=== PATIENT | male | born 1940 | race Caucasian/White ===

== ENCOUNTER 2020-01-22 14:23 | Emergency (ER) | payer MEDICARE, BC ==
[~2020-01-22] VITALS: Ht 180.3 cm; Wt 95.9 kg
[2020-01-22 14:28] VITALS: Ht 180.3 cm; Wt 95.9 kg
[2020-01-22] MEDS ORDERED: LISINOPRIL20 MG PO (14:38)
[2020-01-22] MEDS ORDERED: ASPIRIN EC325 M1 PO (14:38)
[2020-01-22] MEDS ORDERED: DEPAKOTE ER250 MG PO (14:39)
[2020-01-22] MEDS ORDERED: BENZTROPINE ME0.5 MG PO (14:39)
[2020-01-22] MEDS ORDERED: RISPERDAL3 MG PO (14:40)
[2020-01-22] MEDS ORDERED: NAMENDA10 MG PO (14:40)
[2020-01-22] MEDS ORDERED: TIMOPTIC 0.5 % O5 ML EACH EYE (14:40)
[2020-01-22] MEDS ORDERED: MELATONIN 3 MG1 TAB PO (14:40)
[2020-01-22] MEDS ORDERED: ACETAMINOPHEN325 MG PO (14:41)
[2020-01-22] MEDS ORDERED: MIRALAX17 GM PO (14:42)
[2020-01-22] MEDS ORDERED: IMODIUM2 MG PO (14:42)
[2020-01-22] MEDS ORDERED: ROBITUSSIN DM 110 ML PO (14:43)
[2020-01-22] MEDS ORDERED: TUMS X-STR300 MG PO (14:44)
[2020-01-22] MEDS ORDERED: PHENERGAN25 MG RC (14:44)
[2020-01-22 15:24] LABS: BILIRUBIN NEGATIVE (NEGATIVE); GLUCOSE NEGATIVE (NEGATIVE); KETONE NEGATIVE (NEGATIVE); NITRITE NEGATIVE (NEGATIVE); SPECIFIC GRAVITY 1.015 (1.005-1.020); UROBILINOGEN NORMAL (NORMAL)
[2020-01-22 15:26] LABS: BACTERIA FEW /hpf (NEGATIVE); EPITHELIAL CELLS OCC /hpf (0-5); WHITE CELLS - URINE OCC /hpf (NEGATIVE)
[2020-01-22 17:45] VITALS: BP 108/60
== END 2020-01-22 17:45 ==
LOC: EDBD 14:23 → D.ER 14:23
PROVIDERS: Emergency Medicine
DX: I10 Essential (primary) hypertension (principal); F03.90 Unspecified dementia, unspecified severity, without behavioral disturbance, psychotic disturbance, mood disturbance, and anxiety; F39 Unspecified mood [affective] disorder; G47.00 Insomnia, unspecified; M54.9 Dorsalgia, unspecified

== ENCOUNTER 2020-05-23 14:41 | Inpatient (IN) | payer MEDICARE, BC ==
[~2020-05-23] VITALS: Ht 180.3 cm; Wt 97.5 kg
[~2020-05-23 14:41] MED LIST: ACETAMINOPHEN325 MG PO; ASPIRIN EC325 M1 PO; BENZTROPINE ME0.5 MG PO; DEPAKOTE ER250 MG PO; IMODIUM2 MG PO; LISINOPRIL20 MG PO; MELATONIN 3 MG1 TAB PO; MIRALAX17 GM PO; NAMENDA10 MG PO; PHENERGAN25 MG RC; RISPERDAL3 MG PO; ROBITUSSIN DM 110 ML PO; TIMOPTIC 0.5 % O5 ML EACH EYE; TUMS X-STR300 MG PO
[2020-05-23] MEDS ORDERED: NORVASC5 MG PO (14:50)
[2020-05-23 15:39] LABS: BASOPHILS 0 % (0-2); HEMATOCRIT 38.6 % (42.0-54.0); HEMOGLOBIN 12.9 g/dL (13.5-17.5); IMMATURE GRANULOCYTES 0.4 % (0-5); LYMPHOCYTES 11.7 % (15-50); MCH 33.4 pg (26.0-34.0); MCHC 33.4 g/dL (31.0-37.0); MEAN PLATELET VOLUME 9.1 fL (7.4-10.4); MONOCYTES 11.6 % (2-11); NEUTROPHILS 75.3 % (40-80); PLATELET COUNT 164 10x3/uL (130-400); RBC 3.86 10x6/uL (4.20-6.10); RDW 13.2 % (11.5-14.5); WBC 7.9 10x3/uL (4.8-10.8)
[2020-05-23 15:51] LABS: INR 0.93 (0.85-1.17); PROTIME 12.5 SECONDS (11.6-15.0)
[2020-05-23 15:52] LABS: APTT 26.9 SECONDS (22.8-39.4); CALC OSMOLALITY 259 mosm/kg (275-300); CALCIUM 8.5 mg/dL (8.5-10.1); CARBON DIOXIDE 26.4 mmol/L (21.0-32.0); CHLORIDE - SERUM 97 mmol/L (98-107); GLUCOSE 131 mg/dL (74-106); POTASSIUM - SERUM 4.1 mmol/L (3.5-5.1); SODIUM 129 mmol/L (136-145); UREA NITROGEN 10 mg/dL (7-18); eGFR NON AFRICAN AMERICAN 76 mL/min (90-120)
[2020-05-23 15:58] LABS: ALBUMIN 3.1 g/dL (3.4-5.0); ALKALINE PHOSPHATASE 63 U/L (30-120); ALT (SGPT) 12 U/L (10-68); BILIRUBIN - TOTAL 0.33 mg/dL (0.2-1.3); PROTEIN - SERUM 6.2 g/dL (6.4-8.2)
[2020-05-23 16:00] VITALS: BP 149/87
[2020-05-23 17:00] VITALS: BP 175/93
--- NOTE | 2020-05-23 18:28 | NUR ---
PATIENT ARRIVED FROM ER ON BED. TRANSFERED TO BED. SALINE LOCK ON LEFT ARM. BRUISE ON RIGHT HIP/BUTTOCKS AND ON LEFT HIP. SMALL BOWEL MOVEMENT WHEN IN BED. BEDDING CHANGED. ALERT AND ORIENTED. RESPIRATIONS EVEN NON LABORED. NO SIGNS OF DISTRESS NOTED. PATIENT EATING DINNER. NPO AT MIDNIGHT. DENIES FURTHER NEEDS. SIDE RAILS UP X4. CALL LIGHT IN REACH. WILL CONTINUE TO MONITOR FOR SAFTY.
[2020-05-23 18:32] VITALS: BP 134/84
--- NOTE | 2020-05-23 19:04 | NUR ---
PATIENT ALERT AND ORIENTED. EATING DINNER. SITTING UP. RESPIRATIONS EVEN NONLABORED. NO SIGNS OF DISTRESS NOTED. DENIES FURTHER NEEDS. SIDE RAILS UP X3. CALL LIGHT IN REACH. WILL CONTINUE TO MONITOR FOR SAFETY.
[2020-05-23 20:00] VITALS: BP 130/64
--- NOTE | 2020-05-23 21:03 | NUR ---
REC'D SITTING UP IN BED USING URINAL.INSTRUCTED NOTHING TO EAT OR DRINK AFTER MIDNITE GOING TO SURGERY TO GET YOUR HIP FIXED BY DR SHLOMO ROWLEY VOICES UNDERSTANDING.WILL CONTINUE TO MONITOR FOR ANY CHGES IN NEUROVASCULAR STATUS LEFT HIP AND FOLLOW CURRENT PLAN OF CARE.BED ARMED FOR FALL PRECAUTIONS
[2020-05-23 23:02] LABS: MAGNESIUM - SERUM 1.9 mg/dL (1.8-2.4); TROPONIN-I 0.023 ng/mL (0.000-0.060)
[2020-05-24] VITALS: BP 131/72
[2020-05-24 04:00] VITALS: BP 108/72
[2020-05-24 05:03] LABS: BASOPHILS 0 % (0-2); EOSINOPHILS 0.5 % (0-7); HEMATOCRIT 34.1 % (42.0-54.0); HEMOGLOBIN 11.2 g/dL (13.5-17.5); IMMATURE GRANULOCYTES 0.3 % (0-5); MCHC 32.8 g/dL (31.0-37.0); MCV 100.6 fL (80.0-100.0); MEAN PLATELET VOLUME 9.2 fL (7.4-10.4); MONOCYTES 14.5 % (2-11); NEUTROPHILS 72.7 % (40-80); PLATELET COUNT 180 10x3/uL (130-400); RBC 3.39 10x6/uL (4.20-6.10); RDW 13.4 % (11.5-14.5); WBC 9.2 10x3/uL (4.8-10.8)
[2020-05-24 05:28] LABS: PROTIME 13.1 SECONDS (11.6-15.0)
[2020-05-24 05:52] LABS: ALBUMIN 2.8 g/dL (3.4-5.0); ALKALINE PHOSPHATASE 55 U/L (30-120); ALT (SGPT) 10 U/L (10-68); BILIRUBIN - TOTAL 0.57 mg/dL (0.2-1.3); CALC OSMOLALITY 258 mosm/kg (275-300); CALCIUM 8.4 mg/dL (8.5-10.1); CARBON DIOXIDE 27.3 mmol/L (21.0-32.0); CHLORIDE - SERUM 97 mmol/L (98-107); GLUCOSE 115 mg/dL (74-106); POTASSIUM - SERUM 3.8 mmol/L (3.5-5.1); PROTEIN - SERUM 5.7 g/dL (6.4-8.2); SODIUM 129 mmol/L (136-145); UREA NITROGEN 10 mg/dL (7-18); eGFR NON AFRICAN AMERICAN 76 mL/min (90-120)
--- NOTE | 2020-05-24 06:48 | NUR ---
I have reviewed this patient and I concur with the Shift Assessment completed by the Licensed Practical Nurse today this shift.
[2020-05-24 08:40] VITALS: BP 113/71
[2020-05-24 12:35] VITALS: Ht 180.3 cm; Wt 97.5 kg
[2020-05-24 12:41] VITALS: BP 117/71
--- NOTE | 2020-05-24 12:42 | NUR ---
EATING LUNCH. PATIENT IS WITHOUT NEEDS.CALL LIGHT IN REACH
[2020-05-24 15:14] VITALS: BP 112/68
[2020-05-24 20:00] VITALS: BP 96/62
[2020-05-25] VITALS: BP 100/59
--- NOTE | 2020-05-25 02:03 | NUR ---
ASSESSED AT THE BEGINNING OF THE SHIFT. PT IS ALERT AND RESPONSIVE BUT IS A LITTLE CONFUSED. HE IS ABLE TO USE HIS URINAL AND IS ON ROOM AIR. WE HAVE A BED ALARM IN PLACE AND HE RARELY SETS IT OFF. THE DRESSING TO HIS HIP IS CLEAN AND DRY. AT HS MED TIME HE WAS ABLE TO SWALLOW PILLS 2-3 AT A TIME WITHOUT ANY DIFFICULTY. HIS IV SITE IS CLEAR AND NO PROBLEMS NOTED.
[2020-05-25 04:00] VITALS: BP 92/55
[2020-05-25 06:27] LABS: BASOPHILS 0 % (0-2); EOSINOPHILS 0.3 % (0-7); HEMATOCRIT 28.8 % (42.0-54.0); HEMOGLOBIN 9.3 g/dL (13.5-17.5); IMMATURE GRANULOCYTES 0.4 % (0-5); LYMPHOCYTES 9.5 % (15-50); MCH 32.6 pg (26.0-34.0); MCHC 32.3 g/dL (31.0-37.0); MCV 101.1 fL (80.0-100.0); MEAN PLATELET VOLUME 9.4 fL (7.4-10.4); MONOCYTES 17.6 % (2-11); NEUTROPHILS 72.2 % (40-80); RBC 2.85 10x6/uL (4.20-6.10); RDW 13.4 % (11.5-14.5)
[2020-05-25 06:30] LABS: PLATELET COUNT 137 10x3/uL (130-400)
[2020-05-25 06:52] LABS: ALBUMIN 2.4 g/dL (3.4-5.0); BILIRUBIN - TOTAL 0.68 mg/dL (0.2-1.3); CALCIUM 8.3 mg/dL (8.5-10.1); CARBON DIOXIDE 26.6 mmol/L (21.0-32.0); CREATININE - SERUM 1.2 mg/dL (0.6-1.3); MAGNESIUM - SERUM 2.1 mg/dL (1.8-2.4); PROTEIN - SERUM 5.4 g/dL (6.4-8.2)
[2020-05-25 06:54] LABS: ANION GAP 9.8 mmol/L (8-16); POTASSIUM - SERUM 4.4 mmol/L (3.5-5.1)
[2020-05-25 08:49] VITALS: BP 116/61
--- NOTE | 2020-05-25 12:09 | NUR ---
Rehab Prescreening Consult recieved and the chart has been reviewed. He is a good ARU candidate if willing and able to participate in the 3 hrs of therapy every day 5 days a week. He is POD#1 and has a PT eval pending. Rehab will follow. Precious Leon RN Clinical Liaison, Rehab
[2020-05-25 12:47] VITALS: BP 98/62
--- NOTE | 2020-05-25 13:19 | NUR ---
FAMILY IN ROOM. PT SITTING UP WITH BED. NO NEEDS AT THIS TIME.
[2020-05-25 16:00] VITALS: BP 94/50
[2020-05-25 16:50] LABS: BILIRUBIN NEGATIVE (NEGATIVE); GLUCOSE NEGATIVE (NEGATIVE); KETONE NEGATIVE (NEGATIVE); NITRITE NEGATIVE (NEGATIVE); UROBILINOGEN NORMAL (NORMAL)
[2020-05-25 20:00] VITALS: BP 109/57
[2020-05-26] VITALS: BP 89/55
[2020-05-26 04:00] VITALS: BP 95/57
[2020-05-26 06:19] LABS: BASOPHILS 0 % (0-2); EOSINOPHILS 0.7 % (0-7); HEMATOCRIT 23.8 % (42.0-54.0); HEMOGLOBIN 7.9 g/dL (13.5-17.5); IMMATURE GRANULOCYTES 0.3 % (0-5); LYMPHOCYTES 9.9 % (15-50); MCH 33.2 pg (26.0-34.0); MCHC 33.2 g/dL (31.0-37.0); MEAN PLATELET VOLUME 9.8 fL (7.4-10.4); NEUTROPHILS 74.1 % (40-80); PLATELET COUNT 147 10x3/uL (130-400); RBC 2.38 10x6/uL (4.20-6.10); RDW 13.6 % (11.5-14.5); WBC 10.4 10x3/uL (4.8-10.8)
[2020-05-26 06:35] LABS: ALBUMIN 2.2 g/dL (3.4-5.0); ANION GAP 9.7 mmol/L (8-16); BILIRUBIN - TOTAL 0.6 mg/dL (0.2-1.3); CARBON DIOXIDE 26.4 mmol/L (21.0-32.0); CREATININE - SERUM 1.1 mg/dL (0.6-1.3); POTASSIUM - SERUM 4.1 mmol/L (3.5-5.1); PROTEIN - SERUM 4.7 g/dL (6.4-8.2)
--- NOTE | 2020-05-26 09:00 | NUR ---
DRESSING DRY AND INTACT TO LEFT HIP WITH PEDAL PULSES NOTED W/O EDEMA. NO COMPLAINTS OF PAIN NOTED. IV RESTARTED WITH 20G TO LEFT FOREARM
[2020-05-26 09:18] VITALS: BP 119/56
--- NOTE | 2020-05-26 09:25 | NUR ---
STARTED FIRST UNIT PRBC'S WITH NO S/S OF REACTION NOTED.
[2020-05-26 13:21] VITALS: BP 103/61
--- NOTE | 2020-05-26 13:25 | NUR ---
FINISHED 1ST UNIT PRBC'S AND FLUSHING WITH SALINE. NO DISTRESS NOTED OR CHANGE IN CONDITION
--- NOTE | 2020-05-26 14:00 | NUR ---
STARTED 2ND UNIT PRBC'S WITH NO S/S OF REACTION NOTED.
[2020-05-26 16:35] VITALS: BP 115/75
--- NOTE | 2020-05-26 19:05 | NUR ---
PATIENT SLEEPING WHEN ENTERING THE ROOM. PATIENT AROUSES TO VERBAL STIMULI. ORIENTED TO PERSON, PLACE, AND SITUATION. PATIENT STATES PAIN IS MINIMAL AT THIS TIME. ASSESSMENT COMPLETED, SEE CHART. PATIENT LETHARGIC DURING CONVERSATIN BUT AROUSES BACK TO ORIENTATION WHEN NAME CALLED. DENIES FURTHER NEEDS AT THIS TIME. SCD'S ON BILATERALLY. IV PATENT AND INFUSING PER ORDER. DENIES FURTHER NEEDS AT THIS TIME. CALL LIGHT REMAINS CLOSE. CPOC.
[2020-05-26 20:00] VITALS: BP 140/77
--- NOTE | 2020-05-26 21:15 | NUR ---
ADMINISTERED TYLENOL PER ORDER PO FOR PAIN CONTROL. PATIENT TOLERATED WELL.
--- NOTE | 2020-05-26 21:15 | NUR ---
ADMINISTERED HS MEDICATIONS. PATIENT TOLERATES WITH NO ISSUES NOTED. COUGHS AND DEEP BREATHS PER INTERVENTION ORDERS. DENIES FURTHER NEEDS AT THIS TIME. CALL LIGHT REMAINS CLOSE TO PATIENT. CPOC.
[2020-05-27] VITALS: BP 143/83
--- NOTE | 2020-05-27 02:49 | NUR ---
PATIENT VOMITTED. BATH AND BED CHANGE PROVIDED.
[2020-05-27 04:00] VITALS: BP 119/76
[2020-05-27 05:34] LABS: BASOPHILS 0 % (0-2); EOSINOPHILS 0.1 % (0-7); HEMATOCRIT 27.7 % (42.0-54.0); HEMOGLOBIN 9.3 g/dL (13.5-17.5); IMMATURE GRANULOCYTES 0.4 % (0-5); LYMPHOCYTES 4.8 % (15-50); MCH 32.1 pg (26.0-34.0); MCHC 33.6 g/dL (31.0-37.0); MEAN PLATELET VOLUME 9.3 fL (7.4-10.4); MONOCYTES 11.1 % (2-11); NEUTROPHILS 83.6 % (40-80); PLATELET COUNT 142 10x3/uL (130-400); RDW 15.1 % (11.5-14.5); WBC 11.4 10x3/uL (4.8-10.8)
[2020-05-27 05:37] LABS: MCV 95.5 fL (80.0-100.0)
[2020-05-27 05:47] LABS: ALBUMIN 1.9 g/dL (3.4-5.0); ALKALINE PHOSPHATASE 48 U/L (30-120); CALC OSMOLALITY 271 mosm/kg (275-300); CALCIUM 7.8 mg/dL (8.5-10.1); CARBON DIOXIDE 26.3 mmol/L (21.0-32.0); CHLORIDE - SERUM 101 mmol/L (98-107); CREATININE - SERUM 0.9 mg/dL (0.6-1.3); GLUCOSE 146 mg/dL (74-106); MAGNESIUM - SERUM 1.8 mg/dL (1.8-2.4); POTASSIUM - SERUM 4.5 mmol/L (3.5-5.1); SODIUM 131 mmol/L (136-145); UREA NITROGEN 29 mg/dL (7-18); eGFR NON AFRICAN AMERICAN 86 mL/min (90-120)
[2020-05-27 05:48] LABS: ALT (SGPT) 16 U/L (10-68)
[2020-05-27 09:38] VITALS: BP 139/94
[2020-05-27 12:59] VITALS: BP 143/75
[2020-05-27 15:50] VITALS: BP 137/74
--- NOTE | 2020-05-27 19:10 | NUR ---
RESTING WITH EYES CLOSE WHEN ENTERING THE ROOM. PATIENT AROUSES WHEN NAME CALLED. PATIENT VOMITTED BROWN EMESIS WHEN. CLEANED PATIENT AND ASSISTED IN BED CHANGE. ASSESSMENT COMPLETED. LEFT FOREARM IV PATENT. WEARING SCD'S PER ORDER. DENIES FURTHER NEEDS AT THIS TIME. CALL LIGHT CLOSE. CPOC.
[2020-05-27 20:00] VITALS: BP 115/61
[2020-05-28] VITALS: BP 146/79
--- NOTE | 2020-05-28 03:00 | NUR ---
LINES CHANGED PER PROTOCOL. PATIENT DENIES NEEDS AT THIS TIME. CPOC.
[2020-05-28 04:00] VITALS: BP 143/73
[2020-05-28 05:58] LABS: ALBUMIN 1.9 g/dL (3.4-5.0); ALKALINE PHOSPHATASE 50 U/L (30-120); BILIRUBIN - TOTAL 0.67 mg/dL (0.2-1.3); CALC OSMOLALITY 270 mosm/kg (275-300); CALCIUM 8.3 mg/dL (8.5-10.1); CARBON DIOXIDE 26.3 mmol/L (21.0-32.0); CHLORIDE - SERUM 102 mmol/L (98-107); CREATININE - SERUM 0.9 mg/dL (0.6-1.3); GLUCOSE 142 mg/dL (74-106); MAGNESIUM - SERUM 1.9 mg/dL (1.8-2.4); POTASSIUM - SERUM 4.6 mmol/L (3.5-5.1); SODIUM 132 mmol/L (136-145); UREA NITROGEN 24 mg/dL (7-18); eGFR NON AFRICAN AMERICAN 86 mL/min (90-120)
[2020-05-28 05:59] LABS: ALT (SGPT) 21 U/L (10-68)
[2020-05-28 06:49] LABS: BASOPHILS 0.1 % (0-2); EOSINOPHILS 0.3 % (0-7); HEMATOCRIT 25.4 % (42.0-54.0); HEMOGLOBIN 8.5 g/dL (13.5-17.5); IMMATURE GRANULOCYTES 0.3 % (0-5); LYMPHOCYTES 6.7 % (15-50); MCH 32.8 pg (26.0-34.0); MCHC 33.5 g/dL (31.0-37.0); MEAN PLATELET VOLUME 9.2 fL (7.4-10.4); MONOCYTES 9.2 % (2-11); NEUTROPHILS 83.4 % (40-80); PLATELET COUNT 155 10x3/uL (130-400); RBC 2.59 10x6/uL (4.20-6.10); RDW 14.9 % (11.5-14.5); WBC 11.6 10x3/uL (4.8-10.8)
[2020-05-28 06:50] LABS: MCV 98.1 fL (80.0-100.0)
[2020-05-28 08:00] VITALS: BP 142/79
[2020-05-28 11:00] VITALS: BP 108/66
--- NOTE | 2020-05-28 12:24 | NUR ---
Nutrition follow-up: Pt sound asleep at time of RDN visit. Breakfast tray had not been touched; noted pt had Zofran @ 5:00 am. Diet: Regular PO intake ~25% of meals Labs reviewed Wt: 214# +BM RDN will order Ensure with meals to increase kcal/protein intake RDN following.
--- NOTE | 2020-05-28 16:19 | NUR ---
SLEEPING WITHOUT DISTRESS.DOOR OPEN
[2020-05-28 16:40] VITALS: BP 121/69
[2020-05-28 20:00] VITALS: BP 135/75
[2020-05-29] VITALS: BP 122/63
[2020-05-29 04:00] VITALS: BP 152/77
--- NOTE | 2020-05-29 05:00 | NUR ---
I have reviewed this patient and I concur with the Shift Assessment completed by the Licensed Practical Nurse today this shift.
[2020-05-29 06:52] LABS: BASOPHILS 0.1 % (0-2); EOSINOPHILS 2.1 % (0-7); HEMATOCRIT 24.1 % (42.0-54.0); HEMOGLOBIN 7.9 g/dL (13.5-17.5); IMMATURE GRANULOCYTES 0.5 % (0-5); LYMPHOCYTES 12.2 % (15-50); MCH 32.1 pg (26.0-34.0); MCHC 32.8 g/dL (31.0-37.0); MEAN PLATELET VOLUME 9.2 fL (7.4-10.4); MONOCYTES 13.7 % (2-11); NEUTROPHILS 71.4 % (40-80); PLATELET COUNT 172 10x3/uL (130-400); RBC 2.46 10x6/uL (4.20-6.10); RDW 14.3 % (11.5-14.5); WBC 8.7 10x3/uL (4.8-10.8)
[2020-05-29 07:07] LABS: ALBUMIN 1.9 g/dL (3.4-5.0); ALKALINE PHOSPHATASE 60 U/L (30-120); ALT (SGPT) 37 U/L (10-68); BILIRUBIN - TOTAL 0.75 mg/dL (0.2-1.3); CALC OSMOLALITY 263 mosm/kg (275-300); CALCIUM 8.3 mg/dL (8.5-10.1); CARBON DIOXIDE 27.1 mmol/L (21.0-32.0); CHLORIDE - SERUM 99 mmol/L (98-107); CREATININE - SERUM 0.8 mg/dL (0.6-1.3); GLUCOSE 124 mg/dL (74-106); POTASSIUM - SERUM 4.3 mmol/L (3.5-5.1); PROTEIN - SERUM 5.1 g/dL (6.4-8.2); SODIUM 130 mmol/L (136-145); UREA NITROGEN 19 mg/dL (7-18); eGFR NON AFRICAN AMERICAN > 90 mL/min (90-120)
[2020-05-29 09:15] VITALS: BP 160/82
--- NOTE | 2020-05-29 09:32 | OP ---
PATIENT NAME: BIMSARK SIDDIQUI MEDICAL RECORD: [id number] :40 LOCATION:[address] ADMISSION DATE:05/23/20 SURGEON: BEVERLY ROWLEY MD DATE OF OPERATION: 05/24/2020 PREOPERATIVE DIAGNOSIS: Left intertrochanteric hip fracture. POSTOPERATIVE DIAGNOSIS: Left intertrochanteric hip fracture. PROCEDURE: Gamma nail fixation (cephalomedullary fixation of left intertrochanteric hip fracture). SURGEON: Beverly Rowley MD FEED MILL OPERATOR: REJI Curtis INTRAOPERATIVE COMPLICATIONS: None. SUMMARY OF PATHOLOGIC FINDINGS: The patient had an intertrochanteric hip fracture consistent with the preoperative radiographs, it reduced nicely and was amenable to gamma nail fixation. IMPLANTS USED: Gamma 3 fixation from [employer]. OPERATIVE SUMMARY IN DETAIL: After obtaining the appropriate preoperative orthopedic surgery consent as well as anesthetic consultation, evaluation and clearance, the patient was brought to the operating room and placed on table in supine position. After general laryngeal mask airway was administered, the patient was placed in the fracture table. All pressure points were well padded. The right leg was placed in the well leg colorado. The left leg was placed in the traction boot. After the patient was held firmly secured to the table, fluoroscopy was brought in and the hip was reduced under fluoroscopic planes, both AP and lateral. The appropriate timeout was taken and agreed upon by all given the patient's unique identifiers. Left hip was prepped and draped in routine sterile fashion. Under fluoroscopic guidance, incision was made superior to the tip of the greater trochanter. The awl was then used to create an aperture of the greater trochanter. A ball-tipped guidewire was passed. Proximal reaming was followed by insertion of the nail to the appropriate depth. The guidewire was placed in the center-center position on fluoroscopic AP and lateral planes. Appropriate reaming was then followed by placement of the compression screw. The fracture was compressed and then the derotational screw was applied. Distal interlocking screw was applied again, under fluoroscopic plane. AP and lateral views were taken and submitted for radiologist review. Wounds were irrigated and closed in usual fashion. Sterile dressings were applied. The patient was awakened, taken to the recovery room in stable condition. All final needle and sponge counts were correct. TRANSINT:[id number] Voice Confirmation ID: [id number] DOCUMENT ID: [id number] 05/29/2020 Edited date, dmm. OPERATIVE REPORT [id number] BISMARK SIDDIQUI MD, BEVERLY KEENAN at 0932 CC: [id number] DICTATION DATE: 05/25/20 1037 TISSUE TECHNICIAN: 05/25/202019 ADM IN [facility] [address] [id number]
[2020-05-29 19:12] VITALS: BP 107/61
[2020-05-29 19:29] VITALS: BP 141/80
[2020-05-30] VITALS: BP 108/61
--- NOTE | 2020-05-30 01:39 | NUR ---
I have reviewed this patient and I concur with the Shift Assessment completed by the Licensed Practical Nurse today this shift.
[2020-05-30 04:00] VITALS: BP 139/67
[2020-05-30 05:01] LABS: BASOPHILS 0.1 % (0-2); EOSINOPHILS 1.1 % (0-7); HEMATOCRIT 25.3 % (42.0-54.0); HEMOGLOBIN 8.3 g/dL (13.5-17.5); IMMATURE GRANULOCYTES 0.6 % (0-5); LYMPHOCYTES 11.3 % (15-50); MCH 31.9 pg (26.0-34.0); MCHC 32.8 g/dL (31.0-37.0); MCV 97.3 fL (80.0-100.0); MEAN PLATELET VOLUME 9.4 fL (7.4-10.4); MONOCYTES 15.9 % (2-11); PLATELET COUNT 179 10x3/uL (130-400); RDW 14.6 % (11.5-14.5); WBC 8.2 10x3/uL (4.8-10.8)
[2020-05-30 05:28] LABS: ALBUMIN 1.6 g/dL (3.4-5.0); ALKALINE PHOSPHATASE 65 U/L (30-120); ALT (SGPT) 45 U/L (10-68); BILIRUBIN - TOTAL 1.17 mg/dL (0.2-1.3); CALC OSMOLALITY 269 mosm/kg (275-300); CALCIUM 7.9 mg/dL (8.5-10.1); CHLORIDE - SERUM 99 mmol/L (98-107); CREATININE - SERUM 0.8 mg/dL (0.6-1.3); GLUCOSE 122 mg/dL (74-106); PROTEIN - SERUM 4.6 g/dL (6.4-8.2); SODIUM 132 mmol/L (136-145); UREA NITROGEN 23 mg/dL (7-18); eGFR NON AFRICAN AMERICAN > 90 mL/min (90-120)
--- NOTE | 2020-05-30 07:05 | MORECARE ---
CASE MANAGEMENT DISCHARGE SUMMARY PATIENT: BISMARK SIDDIQUI UNIT: [id number] ADM DATE: 05/23/20 AGE: 80 : 40 SEX: M ROOM/BED: D.2202 AUTHOR: MATEO MARTIN PHYSICIAN: REFERRING PHYSICIAN: DELON HAYES MD DATE OF SERVICE: 05/30/20 Discharge Plan Patient Name: BISMARK SIDDIQUI [facility] [facility] 1940 Planned Disposition: Halfway Facility Anticipated Discharge Date: Discharge Date: Expected LOS: Initial Reviewer: [id number] Initial Review Date: 05/23/2020 Generated: 05/30/20 8:04 am Patient Name: BISMARK SIDDIQUI Page [id number] at 0705 All edits/amendments must be made on the electronic document DICTATION DATE: 05/30/20703 DISTRICT GAUGER: RONALD 05/30/2004 RPT#: [id number] DC DATE: STATUS: ADM IN [facility] [address] [place] [address] END OF REPORT
--- NOTE | 2020-05-30 07:11 | MORECARE ---
CASE MANAGEMENT DISCHARGE SUMMARY PATIENT: BISMARK SIDDIQUI UNIT: [id number] ADM DATE: 05/23/20 AGE: 80 : 40 SEX: M ROOM/BED: D.2202 AUTHOR: MATEO MARTIN PHYSICIAN: REFERRING PHYSICIAN: DELON HAYES MD DATE OF SERVICE: 05/30/20 Discharge Plan Patient Name: BISMARK SIDDIQUI Facility: [facility]:[place] : 1940 Planned Disposition: Senior Care Facility Anticipated Discharge Date: Discharge Date: Expected LOS: Initial Reviewer: [email or web address] Initial Review Date: 05/23/2020 Generated: 05/30/20 8:11 am DCPIA - Discharge Planning Initial Assessment Updated by [id number]: Salena Wong on 05/30/20 7:09 am * Is the patient Alert and Oriented? Yes * How many steps to enter\exit or inside your home? * [facility]CP [facility] * Pharmacy [facility] * Preadmission Environment Memory Care * Facility Name [facility] * ADLs Partial Dependent * Partial ADLs (Assistance needed) Medication Management Toileting * Equipment Walker * List name and contact numbers for known caregivers / representatives who currently or will assist patient after discharge: TERESO ( GUARDIAN) [phone] * Verbal permission to speak to the caregivers and representatives has been obtained from the patient. Yes * Additional services required to return to the preadmission environment? Yes * Can the patient safely return to the preadmission environment? No * Has this patient been hospitalized within the prior 30 days at any hospital? No External Providers External Provider: [facility] Next Contact Date: Service Request Date: Service Type: Resolution: Reviewer: Comments: Last DP export: 05/30/20 6:05 a Patient Name: BISMARK SIDDIQUI Page [phone] at 0711 All edits/amendments must be made on the electronic document DICTATION DATE: 05/30/20710 COMPENSATION VICE PRESIDENT: RONALD 05/30/20710 RPT#: [id number] DC DATE: STATUS: ADM IN [facility] [address] [facility] [place] [address] END OF REPORT
--- NOTE | 2020-05-30 07:18 | MORECARE ---
CASE MANAGEMENT DISCHARGE SUMMARY PATIENT: BISMARK SIDDIQUI UNIT: [id number] ADM DATE: 05/23/20 AGE: 80 : 40 SEX: M ROOM/BED: D.2202 AUTHOR: MATEO MARTIN PHYSICIAN: REFERRING PHYSICIAN: DELON HAYES MD DATE OF SERVICE: 05/30/20 Discharge Plan Patient Name: BISMARK SIDDIQUI Facility: [facility]:[place] : 1940 Planned Disposition: Half-Way Facility Anticipated Discharge Date: Discharge Date: Expected LOS: Initial Reviewer: [id number] Initial Review Date: 05/23/2020 Generated: 05/30/20 8:17 am Comments DCP- Discharge Planning Updated by [id number]: Salena Wong on 05/30/20 6:[address] Patient Name: BISMARK SIDDIQUI Admission Status: ER Accout number: [id number] Admission Date: 05-23-2020 : 1940 Admission Diagnosis:DISPLACED INTERTROCHANTERIC FRACTURE OF LEFT FEMUR, INI Attending: DELON JONES Current LOS: 7 Anticipated DC Date: Planned Disposition: Half-Way Facility Primary Insurance: MEDICARE A & B Discharge Planning Comments: LATE ENTRY 05/29/20 @ 1200 MET WITH TERESO (PATIENT'S GUARDIAN) [phone]. I SPOKE WITH HER AT LENGTH ABOUT PLOF AND DC PLAN. THE PATIENT IS A RESIDENT AT THE [facility] IN THEIR MEMORY CARE UNIT. HE MOVED THERE IN OCT 2019. TERESO BECAME HIS GUARDIAN IN OCT. AT THE [facility] THE PATIENT ONLY USED A WALKER. HE WAS AMBULATORY & COULD FEED HIMSELF. PER TERESO HE COULD DO EVERYTHING, HE JUST NEEDED TO BE IN A LOCKED UNIT BECAUSE HE WOULD LEAVE. TERESO'S GOAL IS TO GET HIM BACK TO THE [facility]. HE WILL NEED REHAB PRIOR TO GOING BACK THERE. [facility] SIGNED FOR ANY SKILLED. TERESO DID NOTE THAT YIMI MALIN AT [facility] [facility] IN [place] IS THE PERSON WHO DEALS WITH HIS MONEY. YIMI'S NUMBER IS [phone] OR [phone]. HAS SENT A REFERRAL TO [facility] AND WILL ALSO SEND IT TO [facility] IN [place] ( CLOSER TO TERESO) CM TO FOLLOW AND ASSIST WITH DC PLANNING Child Development Teacher: Salena Wong DCPIA - Discharge Planning Initial Assessment Updated by [email or web address]: Salena Wong on 05/30/20 7:09 am * Is the patient Alert and Oriented? Yes * How many steps to enter\exit or inside your home? * PCP [facility] AT THE [facility] IN [place] * Pharmacy [facility] [place] * Preadmission Environment Memory Care * Facility Name [facility] * ADLs Partial Dependent * Partial ADLs (Assistance needed) Medication Management Toileting * Equipment Walker * List name and contact numbers for known caregivers / representatives who currently or will assist patient after discharge: TERESO ( GUARDIAN) [phone] * Verbal permission to speak to the caregivers and representatives has been obtained from the patient. Yes * Additional services required to return to the preadmission environment? Yes * Can the patient safely return to the preadmission environment? No * Has this patient been hospitalized within the prior 30 days at any hospital? No Coverage Notice Reviewer: [id number] - Salena Wong Notice Issued Date-Time: 05/29/2020 12:00 Notice Type: Patient Choice Letter Notice Delivered To: Other Relationship to Patient: Legal Guardian Criminal Profiler Name: TERESO Delivery Method: HAND - Hand Delivered Verena Days: Prior Verbal Notification: Recipient Understood Notice: Yes Recipient Signature: Yes Med Rec Note Co-signed by Attending: Coverage Notice Comment: Last DP export: 05/30/20 6:11 a Patient Name: BISMARK SIDDIQUI Page [phone] at 0718 All edits/amendments must be made on the electronic document DICTATION DATE: 05/30/20716 DRIVER MERCHANDISER: RONALD 05/30/20716 RPT#: [id number] DC DATE: STATUS: ADM IN [facility] [address] [place] [address] END OF REPORT
[2020-05-30 08:45] VITALS: BP 106/69
[2020-05-30] MEDS ORDERED: ELIQUIS2.5 MG PO (09:18)
[2020-05-30] MEDS ORDERED: MUCINEX600 MG PO (09:19)
[2020-05-30 13:06] VITALS: BP 104/63
--- NOTE | 2020-05-30 13:45 | MORECARE ---
CASE MANAGEMENT DISCHARGE SUMMARY PATIENT: BISMARK SIDDIQUI UNIT: [id number] ADM DATE: 05/23/20 AGE: 80 : 40 SEX: M ROOM/BED: D.2202 AUTHOR: MATEO MARTIN PHYSICIAN: REFERRING PHYSICIAN: DELON HAYES MD DATE OF SERVICE: 05/30/20 Discharge Plan Patient Name: BISMARK SIDDIQUI Facility: [facility]:[place] : 1940 Planned Disposition: Shelter Facility Anticipated Discharge Date: Discharge Date: Expected LOS: Initial Reviewer: [id number] Initial Review Date: 05/23/2020 Generated: 05/30/20 2:45 pm Comments DCP- Discharge Planning Updated by [id number]: Salena Wong on 05/30/20 12:[address] [facility] CALLED AND STATED THAT THEY WILL ACCEPT PATIENT TOMORROW MORNING TO A SKILLED BED DCP- Discharge Planning Updated by [id number]: Salena Wong on 05/30/20 6:[address] Patient Name: BISMARK SIDDIQUI Admission Status: ER Accout number: [id number] Admission Date: 05-23-2020 : 1940 Admission Diagnosis:DISPLACED INTERTROCHANTERIC FRACTURE OF LEFT FEMUR, INI Attending: DELON JONES Current LOS: 7 Anticipated DC Date: Planned Disposition: Shelter Facility Primary Insurance: MEDICARE A & B Discharge Planning Comments: LATE ENTRY 05/29/20 @ 1200 CM MET WITH TERESO (PATIENT'S GUARDIAN) [phone]. I SPOKE WITH HER AT LENGTH ABOUT PLOF AND DC PLAN. THE PATIENT IS A RESIDENT AT [facility] IN THEIR MEMORY CARE UNIT. HE MOVED THERE IN OCT 2019. TERESO BECAME HIS GUARDIAN IN OCT. AT [facility] THE PATIENT ONLY USED A WALKER. HE WAS AMBULATORY & COULD FEED HIMSELF. PER TERESO HE COULD DO EVERYTHING, HE JUST NEEDED TO BE IN A LOCKED UNIT BECAUSE HE WOULD LEAVE. TERESO'S GOAL IS TO GET HIM BACK TO THE [facility]. HE WILL NEED REHAB PRIOR TO GOING BACK THERE. [facility] SIGNED FOR ANY SKILLED. TERESO DID NOTE THAT YIMI MALIN AT [employer] IN [place] IS THE PERSON WHO DEALS WITH HIS MONEY. YIMI'S NUMBER IS [phone] OR [phone]. HAS SENT A REFERRAL TO [facility] AND WILL ALSO SEND IT TO [facility] IN [place] ( CLOSER TO TERESO) [place] TO FOLLOW AND ASSIST WITH DC PLANNING Manager Product: Salena Wong DCPIA - Discharge Planning Initial Assessment Updated by [email or web address]: Salena Wong on 05/30/20 7:09 am * Is the patient Alert and Oriented? Yes * How many steps to enter\exit or inside your home? * PCP [facility] AT THE [facility] [place] * Pharmacy [facility] [place] * Preadmission Environment Memory Care * Facility Name [facility] * ADLs Partial Dependent * Partial ADLs (Assistance needed) Medication Management Toileting * Equipment Walker * List name and contact numbers for known caregivers / representatives who currently or will assist patient after discharge: TERESO ( GUARDIAN) [phone] * Verbal permission to speak to the caregivers and representatives has been obtained from the patient. Yes * Additional services required to return to the preadmission environment? Yes * Can the patient safely return to the preadmission environment? No * Has this patient been hospitalized within the prior 30 days at any hospital? No Coverage Notice Reviewer: [id number] - Salena Wong Notice Issued Date-Time: 05/29/2020 12:00 Notice Type: Patient Choice Letter Notice Delivered To: Other Relationship to Patient: Legal Guardian Hip Hop Performers Name: TERESO Delivery Method: HAND - Hand Delivered Verena Days: Prior Verbal Notification: Recipient Understood Notice: Yes Recipient Signature: Yes Med Rec Note Co-signed by Attending: Coverage Notice Comment: Last DP export: 05/30/20 6:18 a Patient Name: BISMARK SIDDIQUI Page [phone] at 1345 All edits/amendments must be made on the electronic document DICTATION DATE: 05/30/20 1345 COMPUTER OPERATIONS SPECIALIST: RONALD 05/30/20 1345 RPT#: [id number] DC DATE: STATUS: ADM IN [facility] [address] [place] [address] END OF REPORT
[2020-05-30 16:33] VITALS: BP 145/78
[2020-05-30 18:51] LABS: BILIRUBIN NEGATIVE (NEGATIVE); GLUCOSE NEGATIVE (NEGATIVE); KETONE SMALL mg/dL (NEGATIVE); NITRITE NEGATIVE (NEGATIVE); UROBILINOGEN NORMAL (NORMAL)
[2020-05-30 20:00] VITALS: BP 129/75
[2020-05-31 04:00] VITALS: BP 123/67
[2020-05-31 06:41] LABS: BASOPHILS 0 % (0-2); HEMATOCRIT 25.8 % (42.0-54.0); HEMOGLOBIN 8.4 g/dL (13.5-17.5); IMMATURE GRANULOCYTES 0.6 % (0-5); LYMPHOCYTES 7.2 % (15-50); MCH 32.1 pg (26.0-34.0); MCHC 32.6 g/dL (31.0-37.0); MCV 98.5 fL (80.0-100.0); MEAN PLATELET VOLUME 8.9 fL (7.4-10.4); MONOCYTES 16.1 % (2-11); NEUTROPHILS 73.1 % (40-80); PLATELET COUNT 188 10x3/uL (130-400); RBC 2.62 10x6/uL (4.20-6.10); RDW 14.5 % (11.5-14.5); WBC 8.2 10x3/uL (4.8-10.8)
--- NOTE | 2020-05-31 06:54 | NUR ---
I have reviewed this patient and I concur with the Shift Assessment completed by the Licensed Practical Nurse today this shift.
[2020-05-31 06:58] LABS: ALBUMIN 1.7 g/dL (3.4-5.0); ALKALINE PHOSPHATASE 74 U/L (30-120); ALT (SGPT) 43 U/L (10-68); BILIRUBIN - TOTAL 0.89 mg/dL (0.2-1.3); CALC OSMOLALITY 267 mosm/kg (275-300); CALCIUM 8.4 mg/dL (8.5-10.1); CARBON DIOXIDE 26.9 mmol/L (21.0-32.0); CHLORIDE - SERUM 101 mmol/L (98-107); CREATININE - SERUM 0.7 mg/dL (0.6-1.3); GLUCOSE 117 mg/dL (74-106); PROTEIN - SERUM 4.7 g/dL (6.4-8.2); SODIUM 132 mmol/L (136-145); UREA NITROGEN 18 mg/dL (7-18); eGFR NON AFRICAN AMERICAN > 90 mL/min (90-120)
--- NOTE | 2020-05-31 09:07 | MORECARE ---
CASE MANAGEMENT DISCHARGE SUMMARY PATIENT: BISMARK SIDDIQUI UNIT: [id number] ADM DATE: 05/23/20 AGE: 80 : 40 SEX: M ROOM/BED: D.2202 AUTHOR: MATEO MARTIN PHYSICIAN: REFERRING PHYSICIAN: DELON HAYES MD DATE OF SERVICE: 05/31/20 Discharge Plan Patient Name: BISMARK SIDDIQUI Facility: [facility]:[place] : 1940 Planned Disposition: Residential Facility Anticipated Discharge Date: Discharge Date: Expected LOS: Initial Reviewer: [email or web address] Initial Review Date: 05/23/2020 Generated: 05/31/20 10:06 am Comments DCP- Discharge Planning Updated by [id number]: Salena Wong on 05/31/20 7:[address] PATIENT WILL BE DISCHARGING TO [facility] TO A SKILLED BED. I HAVE SPOKEN WITH THE PATIENTS GUARDIAN TERESO FABIAN AND WENT OVER IMM. SHE WILL BE GOING OVER TO [facility] TO BRING HIS STUFF HE WILL NEED TO GO VIA EMS CM TO FOLLOW AND ASSIST DCP- Discharge Planning Updated by [email or web address]: Salena Wong on 05/30/20 12:[address] [facility] WITH [facility] CALLED AND STATED THAT THEY WILL ACCEPT PATIENT TOMORROW MORNING TO A SKILLED BED DCP- Discharge Planning Updated by [id number]: Salena Wong on 05/30/20 6:[address] Patient Name: BISMARK SIDDIQUI Admission Status: ER Accout number: [id number] Admission Date: 05-23-2020 : 1940 Admission Diagnosis:DISPLACED INTERTROCHANTERIC FRACTURE OF LEFT FEMUR, INI Attending: DELON JONES Current LOS: 7 Anticipated DC Date: Planned Disposition: Residential Facility Primary Insurance: MEDICARE A & B Discharge Planning Comments: LATE ENTRY 05/29/20 @ 1200 CM MET WITH TERESO (PATIENT'S GUARDIAN) [phone]. I SPOKE WITH HER AT LENGTH ABOUT PLOF AND DC PLAN. THE PATIENT IS A RESIDENT AT THE [facility] IN THEIR MEMORY CARE UNIT. HE MOVED THERE IN OCT 2019. TERESO BECAME HIS GUARDIAN IN OCT. AT THE [facility] THE PATIENT ONLY USED A WALKER. HE WAS AMBULATORY & COULD FEED HIMSELF. PER TERESO HE COULD DO EVERYTHING, HE JUST NEEDED TO BE IN A LOCKED UNIT BECAUSE HE WOULD LEAVE. TERESO'S GOAL IS TO GET HIM BACK TO THE [facility]. HE WILL NEED REHAB PRIOR TO GOING BACK THERE. [facility] SIGNED FOR ANY SKILLED. TERESO DID NOTE THAT YIMI MALIN AT [facility] IN [place] IS THE PERSON WHO DEALS WITH HIS MONEY. YIMI'S NUMBER IS [phone] OR [phone]. CM HAS SENT A REFERRAL TO [facility] AND WILL ALSO SEND IT TO [facility] IN [place] ( CLOSER TO TERESO) CM TO FOLLOW AND ASSIST WITH DC PLANNING Salesperson Furs: Salena Wong DCPIA - Discharge Planning Initial Assessment Updated by [id number]: Salena Wong on 05/30/20 7:09 am * Is the patient Alert and Oriented? Yes * How many steps to enter\exit or inside your home? * PCP [facility]ТР[facility]Й AT THE [facility] IN [place] * Pharmacy [facility] IN [place] * Preadmission Environment Memory Care * Facility Name [facility] * ADLs Partial Dependent * Partial ADLs (Assistance needed) Medication Management Toileting * Equipment Walker * List name and contact numbers for known caregivers / representatives who currently or will assist patient after discharge: TERESO ( GUARDIAN) [phone] * Verbal permission to speak to the caregivers and representatives has been obtained from the patient. Yes * Additional services required to return to the preadmission environment? Yes * Can the patient safely return to the preadmission environment? No * Has this patient been hospitalized within the prior 30 days at any hospital? No Coverage Notice Reviewer: [id number] Ha Wong Notice Issued Date-Time: 05/29/2020 12:00 Notice Type: Patient Choice Letter Notice Delivered To: Other Relationship to Patient: Legal Guardian Access Tech Name: TERESO Delivery Method: HAND - Hand Delivered Verena Days: Prior Verbal Notification: Recipient Understood Notice: Yes Recipient Signature: Yes Med Rec Note Co-signed by Attending: Coverage Notice Comment: Reviewer: [id number] Ha Wong Notice Issued Date-Time: 05/31/2020 8:30 Notice Type: IM Discharge Notice Notice Delivered To: Other Relationship to Patient: Legal Guardian Access Tech Name: TERESO CAREN Delivery Method: CERT - Certified Mail Verena Days: Prior Verbal Notification: Yes Recipient Understood Notice: Yes Recipient Signature: Med Rec Note Co-signed by Attending: Coverage Notice Comment: VIA TELEPHONE WITH GUARDIAN TERESO FABIAN WILL SEND VIA MAIL TO HER Last DP export: 05/30/20 12:45 p Patient Name: BISMARK SIDDIQUI Page [phone] at 0907 All edits/amendments must be made on the electronic document DICTATION DATE: 05/31/20906 VIDEO SYSTEMS ENGINEER: RONALD 05/31/20906 RPT#: [id number] DC DATE: STATUS: ADM IN [facility] [address] [place] [address] END OF REPORT
[2020-05-31] MEDS ORDERED: NICODERM CQ1 EAC1 TOPICAL (09:51)
[2020-05-31 10:59] VITALS: BP 147/50
--- NOTE | 2020-05-31 11:09 | NUR ---
HE IS CONFUSED, WILL NOT FEED HIMSELF. TOOK HIS MEDICATIONS CRUSHED WITH APPLESAUCE. THIS LEFT HIP IS BRUISES AND HARD AROUND HIS LEFT HIP AND THIGH AREA. HE TESTICLES ARE BRUSIED AND HIS BOTTOM IS RED, CREAM APPLIED. THE CALL LIGHT IS WTIHIN REACH.
--- NOTE | 2020-05-31 11:20 | NUR ---
REPORT CALL TO TEODORO HAGER AT [facility].
--- NOTE | 2020-05-31 12:31 | MORECARE ---
CASE MANAGEMENT DISCHARGE SUMMARY PATIENT: BISMARK SIDDIQUI UNIT: [id number] ADM DATE: 05/23/20 AGE: 80 : 40 SEX: M ROOM/BED: D.2202 AUTHOR: MATEO MARTIN PHYSICIAN: REFERRING PHYSICIAN: DELON HAYES MD DATE OF SERVICE: 05/31/20 Discharge Plan Patient Name: BISMARK SIDDIQUI Facility: [facility]:[place] : 1940 Planned Disposition: Residential Facility Anticipated Discharge Date: Discharge Date: Expected LOS: Initial Reviewer: [id number] Initial Review Date: 05/23/2020 Generated: 05/31/20 1:30 pm Comments DCP- Discharge Planning Updated by [email or web address]: Salena Wong on 05/31/20 11:[address] PT DISCHARGE HAS BEEN PLACED ON HOLD DUE TO AMS AND BIG DECLINE, WILL WAIT FOR RESULTS DCP- Discharge Planning Updated by [email or web address]: Salena Wong on 05/31/20 7:[address] PATIENT WILL BE DISCHARGING TO [facility] TO A SKILLED BED. I HAVE SPOKEN WITH THE PATIENTS GUARDIAN TERESO FABIAN AND WENT OVER IMM. SHE WILL BE GOING OVER TO [facility] TO BRING HIS STUFF HE WILL NEED TO GO VIA EMS CM TO FOLLOW AND ASSIST DCP- Discharge Planning Updated by [id number]: Salena Wong on 05/30/20 12:[address] [facility] CALLED AND STATED THAT THEY WILL ACCEPT PATIENT TOMORROW MORNING TO A SKILLED BED DCP- Discharge Planning Updated by [email or web address]: Salena Wong on 05/30/20 6:[address] Patient Name: BISMARK SIDDIQUI Admission Status: ER Accout number: [id number] Admission Date: 05-23-2020 : 1940 Admission Diagnosis:DISPLACED INTERTROCHANTERIC FRACTURE OF LEFT FEMUR, INI Attending: DELON JONES Current LOS: 7 Anticipated DC Date: Planned Disposition: Residential Facility Primary Insurance: MEDICARE A & B Discharge Planning Comments: LATE ENTRY 05/29/20 @ 1200 CM MET WITH TERESO (PATIENT'S GUARDIAN) [phone]. I SPOKE WITH HER AT LENGTH ABOUT PLOF AND DC PLAN. THE PATIENT IS A RESIDENT AT THE [facility] IN THEIR [facility]. HE MOVED THERE IN OCT 2019. TERESO BECAME HIS GUARDIAN IN OCT. AT THE [facility] THE PATIENT ONLY USED A WALKER. HE WAS AMBULATORY & COULD FEED HIMSELF. PER TERESO HE COULD DO EVERYTHING, HE JUST NEEDED TO BE IN A LOCKED UNIT BECAUSE HE WOULD LEAVE. TERESO'S GOAL IS TO GET HIM BACK TO THE [facility]. HE WILL NEED REHAB PRIOR TO GOING BACK THERE. MAREK SIGNED FOR ANY SKILLED. TERESO DID NOTE THAT YIMI MALIN AT [employer] IN [place] IS THE PERSON WHO DEALS WITH HIS MONEY. YIMI'S NUMBER IS [phone] OR [phone]. HAS SENT A REFERRAL TO [facility] AND WILL ALSO SEND IT TO [facility] IN [place] ( CLOSER TO TERESO) [place] TO FOLLOW AND ASSIST WITH DC PLANNING House Cleaner: Salena Wong DCPIA - Discharge Planning Initial Assessment Updated by [email or web address]: Salena Wong on 05/30/20 7:09 am * Is the patient Alert and Oriented? Yes * How many steps to enter\exit or inside your home? * PCP [facility] AT THE [facility] [place] IN [place] * Pharmacy [facility] * Preadmission Environment Memory Care * Facility Name [facility] * ADLs Partial Dependent * Partial ADLs (Assistance needed) Medication Management Toileting * Equipment Walker * List name and contact numbers for known caregivers / representatives who currently or will assist patient after discharge: TERESO ( GUARDIAN) [phone] * Verbal permission to speak to the caregivers and representatives has been obtained from the patient. Yes * Additional services required to return to the preadmission environment? Yes * Can the patient safely return to the preadmission environment? No * Has this patient been hospitalized within the prior 30 days at any hospital? No Coverage Notice Reviewer: [id number] Ha Wong Notice Issued Date-Time: 05/29/2020 12:00 Notice Type: Patient Choice Letter Notice Delivered To: Other Relationship to Patient: Legal Guardian Linen Sorter Name: TERESO Delivery Method: HAND - Hand Delivered Verena Days: Prior Verbal Notification: Recipient Understood Notice: Yes Recipient Signature: Yes Med Rec Note Co-signed by Attending: Coverage Notice Comment: Reviewer: [id number] - Salena Marvin Notice Issued Date-Time: 05/31/2020 8:30 Notice Type: IM Discharge Notice Notice Delivered To: Other Relationship to Patient: Legal Guardian Linen Sorter Name: TERESO FABIAN Delivery Method: CERT - Certified Mail Verena Days: Prior Verbal Notification: Yes Recipient Understood Notice: Yes Recipient Signature: Med Rec Note Co-signed by Attending: Coverage Notice Comment: VIA TELEPHONE WITH GUARDIAN TERESO FABIAN WILL SEND VIA MAIL TO HER Last DP export: 05/31/20 8:07 a Patient Name: BISMARK SIDDIQUI Page [phone] at 1230 All edits/amendments must be made on the electronic document DICTATION DATE: 05/31/20 1230 PRINTING PRESS OPERATOR: RONALD 05/31/20 1230 RPT#: [id number] DC DATE: STATUS: ADM IN [facility] [address] [place] [address] END OF REPORT
--- NOTE | 2020-05-31 12:55 | NUR ---
POST VOID [phone] CC.
[2020-05-31 13:16] VITALS: BP 129/82
--- NOTE | 2020-05-31 13:54 | NUR ---
PLACED A 14 SUDANESE COUDE CATH WITHOUT ANY PROBLEM. IMMIDATE RETURN OF URINE. THE CALL LIGHT IS WITHIN REACH.
--- NOTE | 2020-05-31 14:15 | NUR ---
UPDATED LAST HAGER ABOUT THE WOLF AND CT BEING DONE.
--- NOTE | 2020-05-31 14:25 | NUR ---
SHE IS CONFUSED AND UNABLE TO SIGN HIS PAPERWORK. WE SPOKE TERESO, THE POA ABOUT THE DISCHARGE. H
--- NOTE | 2020-05-31 15:00 | NUR ---
THE EMS IS HERE TO GET HIM, HE IS GOING TO [facility].
[2020-06-01] MEDS ORDERED: HYDROCODON-ACE1 EAC7 PO (16:44)
--- NOTE | 2020-06-01 16:59 | MORECARE ---
CASE MANAGEMENT DISCHARGE SUMMARY PATIENT: BISMARK SIDDIQUI UNIT: [id number] ADM DATE: 05/23/20 AGE: 80 : 40 SEX: M ROOM/BED: D.2202 AUTHOR: MATEO MARTIN PHYSICIAN: REFERRING PHYSICIAN: DELON HAYES MD DATE OF SERVICE: 06/01/20 Discharge Plan Patient Name: BISMARK SIDDIQUI Facility: [facility]:[place] : 1940 Planned Disposition: Custodial Facility Anticipated Discharge Date: Discharge Date: 05/31/2020 Expected LOS: Initial Reviewer: [email or web address] Initial Review Date: 05/23/2020 Generated: 06/01/20 5:58 pm Comments DCP- Discharge Planning Updated by [id number]: Salena Wong on 05/31/20 11:[address] PT DISCHARGE HAS BEEN PLACED ON HOLD DUE TO AMS AND BIG DECLINE, WILL WAIT FOR RESULTS DCP- Discharge Planning Updated by [email or web address]: Salena Wong on 05/31/20 7:[address] PATIENT WILL BE DISCHARGING TO [facility] TO A SKILLED BED. I HAVE SPOKEN WITH THE PATIENTS GUARDIAN TERESO FABIAN AND WENT OVER IMM. SHE WILL BE GOING OVER TO [facility] TO BRING HIS STUFF HE WILL NEED TO GO VIA EMS CM TO FOLLOW AND ASSIST DCP- Discharge Planning Updated by [id number]: Salena Wong on 05/30/20 12:[address] [facility] CALLED AND STATED THAT THEY WILL ACCEPT PATIENT TOMORROW MORNING TO A SKILLED BED DCP- Discharge Planning Updated by [id number]: Salena Wong on 05/30/20 6:[address] Patient Name: BISMARK SIDDIQUI Admission Status: ER Accout number: [id number] Admission Date: 05-23-2020 : 1940 Admission Diagnosis:DISPLACED INTERTROCHANTERIC FRACTURE OF LEFT FEMUR, INI Attending: DELON JONES Current LOS: 7 Anticipated DC Date: Planned Disposition: Custodial Facility Primary Insurance: MEDICARE A & B Discharge Planning Comments: LATE ENTRY 05/29/20 @ 1200 CM MET WITH TERESO (PATIENT'S GUARDIAN) [phone]. I SPOKE WITH HER AT LENGTH ABOUT PLOF AND DC PLAN. THE PATIENT IS A RESIDENT AT THE [facility] IN THEIR [facility]. HE MOVED THERE IN OCT 2019. TERESO BECAME HIS GUARDIAN IN OCT. AT THE [facility] THE PATIENT ONLY USED A WALKER. HE WAS AMBULATORY & COULD FEED HIMSELF. PER TERESO HE COULD DO EVERYTHING, HE JUST NEEDED TO BE IN A LOCKED UNIT BECAUSE HE WOULD LEAVE. TERESO'S GOAL IS TO GET HIM BACK TO THE [facility]. HE WILL NEED REHAB PRIOR TO GOING BACK THERE. MAREK SIGNED FOR ANY SKILLED. TERESO DID NOTE THAT YIMI MALIN AT [employer] IN [place] IS THE PERSON WHO DEALS WITH HIS MONEY. YIMI'S NUMBER IS [phone] OR [phone]. HAS SENT A REFERRAL TO [facility] AND WILL ALSO SEND IT TO [facility] IN [place] ( CLOSER TO TERESO) [place] TO FOLLOW AND ASSIST WITH DC PLANNING Kilnman: Salena Wong DCPIA - Discharge Planning Initial Assessment Updated by [id number]: Salena Wong on 05/30/20 7:09 am * Is the patient Alert and Oriented? Yes * How many steps to enter\exit or inside your home? * PCP [facility] AT THE [facility] [place] IN [place] * Pharmacy [facility] * Preadmission Environment Memory Care * Facility Name [facility] * ADLs Partial Dependent * Partial ADLs (Assistance needed) Medication Management Toileting * Equipment Walker * List name and contact numbers for known caregivers / representatives who currently or will assist patient after discharge: TERESO ( GUARDIAN) [phone] * Verbal permission to speak to the caregivers and representatives has been obtained from the patient. Yes * Additional services required to return to the preadmission environment? Yes * Can the patient safely return to the preadmission environment? No * Has this patient been hospitalized within the prior 30 days at any hospital? No Coverage Notice Reviewer: [id number] Ha Wong Notice Issued Date-Time: 05/29/2020 12:00 Notice Type: Patient Choice Letter Notice Delivered To: Other Relationship to Patient: Legal Guardian System Sales Consultant Name: TERESO Delivery Method: HAND - Hand Delivered Verena Days: Prior Verbal Notification: Recipient Understood Notice: Yes Recipient Signature: Yes Med Rec Note Co-signed by Attending: Coverage Notice Comment: Reviewer: [id number] Wong Notice Issued Date-Time: 05/31/2020 8:30 Notice Type: IM Discharge Notice Notice Delivered To: Other Relationship to Patient: Legal Guardian System Sales Consultant Name: TERESO FABIAN Delivery Method: CERT - Certified Mail Verena Days: Prior Verbal Notification: Yes Recipient Understood Notice: Yes Recipient Signature: Med Rec Note Co-signed by Attending: Coverage Notice Comment: VIA TELEPHONE WITH GUARDIAN TERESO FABIAN WILL SEND VIA MAIL TO HER Last DP export: 05/31/20 11:31 a Patient Name: BISMARK SIDDIQUI Page [phone] at 1659 All edits/amendments must be made on the electronic document DICTATION DATE: 06/01/201657 MOTOR VEHICLE TECHNICIAN: RONALD 06/01/201657 RPT#: [id number] DC DATE:05/31/20 STATUS: DIS IN [facility] [address] [place] [address] END OF REPORT
== END 2020-05-31 15:00 | DRG 481 ==
LOC: D.ER 14:41 → D.MS 16:40
PROVIDERS: Emergency Medicine; Family Medicine; Orthopaedic Surgery; ADMIT Family Medicine; ATTEND Family Medicine
PROC: 0QH736Z Insertion of Intramedullary Internal Fixation Device into Left Upper Femur, Percutaneous Approach (ICD-10-PCS; principal; 2020-05-24 12:45)
DX: S72.142A Displaced intertrochanteric fracture of left femur, initial encounter for closed fracture (principal); S22.079A Unspecified fracture of T9-T10 vertebra, initial encounter for closed fracture; E87.1 Hypo-osmolality and hyponatremia; W19.XXXA Unspecified fall, initial encounter; D64.9 Anemia, unspecified; I10 Essential (primary) hypertension; H40.9 Unspecified glaucoma; G30.9 Alzheimer's disease, unspecified; F02.80 Dementia in other diseases classified elsewhere, unspecified severity, without behavioral disturbance, psychotic disturbance, mood disturbance, and anxiety

== ENCOUNTER 2020-06-01 08:55 | Inpatient (IN) | payer MEDICARE, BC ==
[~2020-06-01] VITALS: Ht 180.3 cm; Wt 96.9 kg
[2020-06-01] VITALS (12 sets, daily range): BP systolic 113–157; BP diastolic 45–92
[~2020-06-01 08:55] MED LIST changes: +ELIQUIS2.5 MG PO; +MUCINEX600 MG PO; +NICODERM CQ1 EAC1 TOPICAL; +NORVASC5 MG PO
--- NOTE | 2020-06-01 09:00 | NUR ---
INDWELLING WOLF CATH UPON ARRIVAL. CLEAR YELLOW URINE NOTED.
[2020-06-01 09:55] LABS: BASOPHILS 0.1 % (0-2); EOSINOPHILS 3.4 % (0-7); HEMATOCRIT 25.8 % (42.0-54.0); HEMOGLOBIN 8.4 g/dL (13.5-17.5); IMMATURE GRANULOCYTES 0.7 % (0-5); LYMPHOCYTES 7.6 % (15-50); MCH 32.3 pg (26.0-34.0); MCHC 32.6 g/dL (31.0-37.0); MCV 99.2 fL (80.0-100.0); MEAN PLATELET VOLUME 9.1 fL (7.4-10.4); MONOCYTES 9.7 % (2-11); NEUTROPHILS 78.5 % (40-80); PLATELET COUNT 209 10x3/uL (130-400); RDW 14.5 % (11.5-14.5); WBC 8.3 10x3/uL (4.8-10.8)
[2020-06-01 10:03] LABS: CALC OSMOLALITY 270 mosm/kg (275-300); CARBON DIOXIDE 27.8 mmol/L (21.0-32.0); CHLORIDE - SERUM 102 mmol/L (98-107); CREATININE - SERUM 0.8 mg/dL (0.6-1.3); GLUCOSE 146 mg/dL (74-106); SODIUM 132 mmol/L (136-145); UREA NITROGEN 20 mg/dL (7-18); eGFR NON AFRICAN AMERICAN > 90 mL/min (90-120)
[2020-06-01 10:08] LABS: APTT 29.5 SECONDS (22.8-39.4)
[2020-06-01 10:09] LABS: INR 1.06 (0.85-1.17); PROTIME 13.8 SECONDS (11.6-15.0)
[2020-06-01 10:24] LABS: ALBUMIN 1.6 g/dL (3.4-5.0); ALKALINE PHOSPHATASE 86 U/L (30-120); ALT (SGPT) 53 U/L (10-68); BILIRUBIN - TOTAL 0.84 mg/dL (0.2-1.3); CKMB 3.7 U/L (0.0-3.6); CREATINE KINASE 42 UL (21-232); MAGNESIUM - SERUM 1.8 mg/dL (1.8-2.4); PROTEIN - SERUM 4.7 g/dL (6.4-8.2)
[2020-06-01 10:36] LABS: TROPONIN-I 1.389 ng/mL (0.000-0.060)
[2020-06-01 10:41] LABS: C-REACTIVE PROTEIN 19.1 mg/dL (0.0-0.9)
--- NOTE | 2020-06-01 10:50 | NUR ---
ERP INFORMED OF ELEVATED D-DIMER OF 6.04
--- NOTE | 2020-06-01 16:00 | NUR ---
AT 1430 WHEN REPORT WAS CALLED, THERE WAS CONFUSION REGARDING ROOM ASSIGNMENT. ROOM WAS NOT CHANGED AND PT WAS TO GO TO SAME ROOM.
--- NOTE | 2020-06-01 16:30 | NUR ---
PT TO FLOOR FROM ER ON CART. ASSIST TO BED, PT UNABLE TO ASSIST AT ALL. DRESSING TO RIGHT HIP NOTED, DATED CHANGED YESTERDAY WHILE ON MEDSUR PRIOR TO DISCHARGE. WOLF IN PLACE, ALSO DATED YESTERDAY FROM MEDSUR DUE TO RETENTION. SCROTUM IS SWOLLEN AND BLACK/BRUISED. PT IS NOT TALKING AND SLEEPING AT PRESENT. HISTORY OBTAINED FROM RECORDS. TELEMETRY PLACED, RUNNING SINUS RHYTHM AT 86. PULSE OX 100% ON 2 LITERS.
[2020-06-01 16:37] LABS: CKMB 4.3 U/L (0.0-3.6); CREATINE KINASE 61 UL (21-232)
[2020-06-01 16:39] LABS: TROPONIN-I 1.327 ng/mL (0.000-0.060)
[2020-06-01] MEDS ORDERED: HYDROCODON-ACE1 EAC7 PO (16:44)
[2020-06-01 23:14] LABS: CREATINE KINASE 46 UL (21-232)
[2020-06-02 04:58] VITALS: BP 119/61
[2020-06-02 05:15] LABS: BASOPHILS 0.1 % (0-2); EOSINOPHILS 4.6 % (0-7); HEMATOCRIT 25.5 % (42.0-54.0); HEMOGLOBIN 8.1 g/dL (13.5-17.5); LYMPHOCYTES 13.7 % (15-50); MCH 31.9 pg (26.0-34.0); MCHC 31.8 g/dL (31.0-37.0); MCV 100.4 fL (80.0-100.0); MEAN PLATELET VOLUME 9.5 fL (7.4-10.4); MONOCYTES 12.4 % (2-11); NEUTROPHILS 68.2 % (40-80); PLATELET COUNT 174 10x3/uL (130-400); RBC 2.54 10x6/uL (4.20-6.10); RDW 14.5 % (11.5-14.5); WBC 6.7 10x3/uL (4.8-10.8)
[2020-06-02 05:41] LABS: CALCIUM 8.1 mg/dL (8.5-10.1); CARBON DIOXIDE 27.4 mmol/L (21.0-32.0); CHLORIDE - SERUM 100 mmol/L (98-107); CKMB 2.6 U/L (0.0-3.6); CREATINE KINASE 52 UL (21-232); CREATININE - SERUM 0.7 mg/dL (0.6-1.3); MAGNESIUM - SERUM 2.1 mg/dL (1.8-2.4); PHOSPHOROUS 3.9 mg/dL (2.5-4.9); POTASSIUM - SERUM 4.6 mmol/L (3.5-5.1); SODIUM 130 mmol/L (136-145); UREA NITROGEN 19 mg/dL (7-18); eGFR NON AFRICAN AMERICAN > 90 mL/min (90-120)
[2020-06-02 05:49] LABS: CALC OSMOLALITY 262 mosm/kg (275-300); GLUCOSE 92 mg/dL (74-106); TROPONIN-I 1.003 ng/mL (0.000-0.060)
[2020-06-02 08:30] VITALS: BP 115/76
[2020-06-02 11:11] VITALS: Ht 180.3 cm; Wt 96.9 kg
[2020-06-02 11:30] VITALS: BP 139/76
--- NOTE | 2020-06-02 14:00 | NUR ---
ASSISTED PT TO EAT LUNCH, MORE AWAKE AND ALERT NOW. MEDS GIVEN AND POSITIONED FOR COMFORT.
[2020-06-02 15:30] VITALS: BP 132/67
[2020-06-02 20:00] VITALS: BP 126/73
[2020-06-03] VITALS: BP 113/69
--- NOTE | 2020-06-03 01:00 | NUR ---
INITIAL ROUNDS COMPLETED AT 1914 HRS. PT DENIED ANY DISCOMFORT. ASSESSMENT COMPLETED AT 2044 HRS. VSS. SR PER CM HR 80. PT ALERT, ORIENTED TO PERSON ONLY. REORIENTED TO PLACE, TIME AND SITUATION. IV TO L HAND AND RAC SL. LUNGS DIMINISHED IN BASES BILAT. DRESSING TO L HIP CLEAN, DRY AND INTACT. CHO. PALPABLE PERIPHERAL PULSES. WOLF DRAINING YELLOW URINE. PM MEDS GIVEN WITHOUT DIFFICULTY. PT CURRENTLY RESTING WITH EYES CLOSED. RESP EVEN AND REGULAR. SR UP X2, CALL LIGHT WITHIN REACH AND BED ALARM ON.
--- NOTE | 2020-06-03 01:58 | NUR ---
PT RESTING WITH EYES CLOSED. RESP EVEN AND REGULAR. SR UP X2, CALL LIGHT WITHIN REACH.
[2020-06-03 04:00] VITALS: BP 125/71
--- NOTE | 2020-06-03 04:40 | NUR ---
APPLE JUICE GIVEN PER REQUEST. SR UP X2, CALL LIGHT WITHIN REACH AND BED ALARM ON.
--- NOTE | 2020-06-03 06:03 | NUR ---
VSS THROUGHOUT NIGHT. SR PER CM. PT DENIED ANY DISCOMFORT. NEEDS MET; WILL CONTINUE TO MONITOR.
[2020-06-03 07:10] LABS: BASOPHILS 0.1 % (0-2); IMMATURE GRANULOCYTES 0.6 % (0-5); LYMPHOCYTES 9.3 % (15-50); MCH 30.8 pg (26.0-34.0); MCHC 32.1 g/dL (31.0-37.0); MEAN PLATELET VOLUME 9.1 fL (7.4-10.4); MONOCYTES 12.1 % (2-11); NEUTROPHILS 73.9 % (40-80); RDW 16.1 % (11.5-14.5); WBC 7.7 10x3/uL (4.8-10.8)
[2020-06-03 07:16] LABS: HEMATOCRIT 31.2 % (42.0-54.0); PLATELET COUNT 229 10x3/uL (130-400); RBC 3.25 10x6/uL (4.20-6.10)
[2020-06-03 07:23] LABS: CALC OSMOLALITY 259 mosm/kg (275-300); CALCIUM 8.3 mg/dL (8.5-10.1); CARBON DIOXIDE 28.5 mmol/L (21.0-32.0); CHLORIDE - SERUM 97 mmol/L (98-107); CREATININE - SERUM 0.8 mg/dL (0.6-1.3); GLUCOSE 124 mg/dL (74-106); PHOSPHOROUS 3.4 mg/dL (2.5-4.9); SODIUM 128 mmol/L (136-145); UREA NITROGEN 17 mg/dL (7-18); eGFR NON AFRICAN AMERICAN > 90 mL/min (90-120)
[2020-06-03 07:24] LABS: POTASSIUM - SERUM 3.9 mmol/L (3.5-5.1)
[2020-06-03 09:38] VITALS: BP 151/76
--- NOTE | 2020-06-03 13:18 | NUR ---
REPORT CALLED TO MI. 02 SAT 99% ON ROOM AIR. WILL CONT. PLAN OF CARE.
--- NOTE | 2020-06-03 16:03 | NUR ---
iv and telemetry dcd. escorted to la van by w/c.
--- NOTE | 2020-06-03 17:53 | MORECARE ---
CASE MANAGEMENT DISCHARGE SUMMARY PATIENT: BISMARK SIDDIQUI UNIT: [id number] ADM DATE: 06/01/20 AGE: 80 : 40 SEX: M ROOM/BED: D.2126 AUTHOR: MATEO MARTIN PHYSICIAN: REFERRING PHYSICIAN: BEN FIGUEROA MD DATE OF SERVICE: 06/03/20 Discharge Plan Patient Name: BISMARK SIDDIQUI [facility] : 1940 Planned Disposition: Group Home Facility Anticipated Discharge Date: Discharge Date: 06/03/2020 Expected LOS: Initial Reviewer: [email or web address] Initial Review Date: 06/01/2020 Generated: 06/03/20 6:52 pm Patient Name: BISMARK SIDDIQUI Page [phone] at 1753 All edits/amendments must be made on the electronic document DICTATION DATE: 06/03/201752 CAPONIZER: RONALD 06/03/201752 RPT#: [id number] DC DATE:06/03/20 STATUS: DIS IN [facility] [address] [place] [address] END OF REPORT
--- NOTE | 2020-06-03 17:59 | MORECARE ---
CASE MANAGEMENT DISCHARGE SUMMARY PATIENT: BISMARK SIDDIQUI UNIT: [id number] ADM DATE: 06/01/20 AGE: 80 : 40 SEX: M ROOM/BED: D.6 AUTHOR: MATEO MARTIN PHYSICIAN: REFERRING PHYSICIAN: BEN FIGUEROA MD DATE OF SERVICE: 06/03/20 Discharge Plan Patient Name: BISMARK SIDDIQUI Facility: [facility]:[place] : 1940 Planned Disposition: Intermediate Facility Anticipated Discharge Date: Discharge Date: 06/03/2020 Expected LOS: Initial Reviewer: [id number] Initial Review Date: 06/01/2020 Generated: 06/03/20 6:59 pm Comments DCP- Discharge Planning Updated by [email or web address]: Yanna Butt on 06/03/20 4:[address] Patient plans to return to [facility] into a skilled bed (Medicare). CM contacted Dana at [place] and she stated to have nurse to call report and then she would arrange transportation back to facility. CM notified nursing of plan and to call report. CM will continue to follow and assist as needed with discharge planning / needs. Last DP export: 06/03/20 4:53 pm Patient Name: BISMARK SIDDIQUI Page [phone] at 1759 All edits/amendments must be made on the electronic document DICTATION DATE: 06/03/201758 BRIDGES SUPERVISOR: RONALD 06/03/201758 RPT#: [id number] DC DATE:06/03/20 STATUS: DIS IN [facility] [address] [facility] [place] [address] END OF REPORT
--- NOTE | 2020-06-04 13:47 | CN ---
PATIENT NAME:JONA SIDDIQUI MEDICAL RECORD: [id number] : [birth year] LOCATION:. D.2126 ADMIT DATE: 06/01/20 ACCOUNT: [id number] CONSULTING PHYSICIAN: SHELBIE LOVELACE MD REFERRING PHYSICIAN: BEN FIGUEROA MD DATE OF CONSULTATION: 06/02/2020 HISTORY OF PRESENT ILLNESS: Jona Siddiqui is an 80-year-old gentleman with a history of dementia, recently discharged to rehab after surgery for hip replacement. Had reported chest pain. He has a difficult time describing this at this point, resolved with nitroglycerin in the Emergency Room, subsequently found to have cardiac enzymes consistent with NSTEMI additionally, found to be anemic, has been somewhat anemic since surgery with a hemoglobin as low as 7.6. We are asked to see him concerning his cardiovascular status. Currently, he reports pain free. PAST MEDICAL HISTORY: Includes: 1. History of hypertension. 2. Hyperlipidemia. 3. Dementia. ALLERGIES: AMBIEN, TORADOL, AND STATINS. MEDICATIONS: Upon transfer include MiraLax 17 g every day, Risperdal 3 mg b.i.d., [place] 5/325 one q.6 p.r.n., aspirin 325 every day, Depakote 250 b.i.d., Cogentin 0.5 b.i.d., amlodipine 5 every day, lisinopril 40 mg every day, Eliquis 2.5 b.i.d. SOCIAL HISTORY: Prior to hip fracture surgery, he was home independent, currently in rehabilitation. PHYSICAL EXAMINATION: GENERAL: Elderly gentleman, in no acute distress, appears stated age. VITAL SIGNS: Blood pressure 119/61, pulse of 87 and regular. NECK: No JVD or bruits. HEART: Regular. II/ systolic ejection murmur. LUNGS: Good air excursion. ABDOMEN: Soft, nontender. EXTREMITIES: Pulses 2+. There is no edema. IMPRESSION: Sla-OU-olgsdwhjs myocardial infarction, suspect type 2 myocardial infarction with supply-demand mismatch with currently underlying anemia. We will transfuse 1 unit of packed red blood cells. Enzymes are currently trending down. Check focal wall motion for any significant abnormal wall motion. We would reserve further invasive workup only for current symptomology. TRANSINT:[id number] Voice Confirmation ID: [id number] DOCUMENT ID: [id number] CONSULT REPORT [id number] JONA SIDDIQUI,SHELBIE Woodruff MD at 1347 CC: [id number] DICTATION DATE: 06/02/20 0858 RELATIONSHIP EXECUTIVE: 06/02/20 1057 DIS IN 06/03/20 [place] [id number] [place] [id number]
--- NOTE | 2020-06-04 13:47 | EC ---
PATIENT:BISMARK SIDDIQUI DATE OF SERVICE: 06/01/20 SEX: M MEDICAL RECORD: [id number] DATE OF : [birth year] LOCATION:D.M2 D.212 AGE OF PATIENT: 80 ADMISSION DATE: 06/01/20 REFERRING PHYSICIAN: INTERPRETING PHYSICIAN: SHELBIE LOVELACE MD ECHOCARDIOGRAM REPORT ECHO CHARGES 4 ECHO COMPLETE Date: 06/02/20 CLINICAL DIAGNOSIS: N-STEMI ECHOCARDIOGRAPHIC MEASUREMENTS (adult normal given) AC root (d.<3.7cm) 3.4 cm LV Septum d (<1.2 cm> 1.5 cm Valve Excursion 1.9 cm LV Septum (systole) 2.3 cm Left Atria (s.<4.0cm> 3.7 cm LVPW d(<1.2cm) 1.2 cm RV (d.<2.3cm) 2.8 cm LVPW (sytole) 1.8 cm LV diastole(<5.6CM) 5.3 cm MV E-F(>70mm/sec) cm LV systole 3.1 cm LVOT Diameter 2.1 cm MV exc.(>10mm) cm Est.ejection fraction (50-75%) % DOPPLER: LVIT cm/sec A 103 cm/sec E 57.0 cm/sec LA cm/sec RVSP 34.0 mmHg LVOT 81.0 cm/sec AOP1/2T m/s Asc. Ao 121 cm/sec RVOT 72.0 cm/sec RA cm/sec PA 85.0 cm/sec AV Gradient Peak 5.9 mmHg AV Mean 2.6 mmHg AV Area 3.2 cm MV Gradient Peak 3.8 mmHg MV Mean 1.2 mmHg MV Area cm COMMENTS: Sack Repairer: 1 STEF PRYOROE Control Room Helper: 3 Dr. Magaña TAPE# PACS Pericardial Effusion N DATE OF SERVICE: Adequate 2D, color flow imaging, spectral Doppler, and M-Mode. LVH is present. LV internal dimension is normal. LV appears to be mildly globally hypo with EF lower limits of normal, reduced EF of 45% to 50%. Aortic valve is tricuspid. No evidence of stenosis by Doppler interrogation. Left atrium normal at 3.7 cm. Mitral valve shows no prolapse. Mild MR. Right-sided chambers are grossly normal. Trace TR. ECHOCARDIOGRAM REPORT [id number] BISMARK ISDDIQUI TRANSINT:[id number] Voice Confirmation ID: [id number] DOCUMENT ID: [id number] SHELBIE LOVELACE MD at 1347 CC: [id number] DICTATION DATE: 06/03/20 115 SHANK SANDER: 06/03/202200 DIS IN 06/03/20 [place] [id number] [place] [id number]
== END 2020-06-03 16:04 | DRG 811 ==
LOC: D.ER 08:55 → D.M2 12:23
PROVIDERS: Family Medicine; ADMIT Emergency Medicine; ATTEND Emergency Medicine
DX: D64.9 Anemia, unspecified (principal); I21.A1 Myocardial infarction type 2; M48.54XA Collapsed vertebra, not elsewhere classified, thoracic region, initial encounter for fracture; F03.90 Unspecified dementia, unspecified severity, without behavioral disturbance, psychotic disturbance, mood disturbance, and anxiety; I10 Essential (primary) hypertension